=== PATIENT | female | born 1995 | race Caucasian/White ===

== ENCOUNTER 2023-11-17 10:03 | Inpatient (IN) ==
[2023-11-17] MEDS: SODIUM CHLORIDE 0.9% 1,000 ML IV SCH (10:40)
[2023-11-17 11:06] LABS: Alanine Aminotransferase 25 U/L (7-52); Albumin Globulin Ratio 1.5 (0.9-2); Albumin Level 4.5 gm/dl (3.4-5.0); Alkaline Phosphatase 76 U/L (34-104); Anion Gap 15 (3-11); Aspartate Aminotransferase 13 U/L (13-39); BUN Creatinine Ratio 19.6 (10-20); Bilirubin,Total 1.5 mg/dl (0.2-1.0); Blood Urea Nitrogen 10 mg/dl (6-23); Calcium 9.5 mg/dl (8.6-10.3); Carbon Dioxide 18 mmol/L (21-32); Chloride 100 mmol/L (98-107); Creatinine Clr Calc Pharmacy 165.7 ml/min; Est GFR (African American) > 150.0 ml/min; Est GFR (Non-African American) 129.9 ml/min; Glucose 115 mg/dl (70-99(Fasting)); Potassium 3.7 mmol/L (3.5-5.1); Sodium 133 mmol/L (136-145); Total Protein 7.5 gm/dl (6.0-8.3)
[2023-11-17 11:17] LABS: Basophils # (auto) 0.07 K/uL (0.00-0.20); Basophils % (auto) 0.2 %; Eosinophils # (auto) 0.01 K/uL (0.00-0.50); Hematocrit (blood only) 41.8 % (37.0-47.0); Hemoglobin 14.2 g/dl (12.0-16.0); Immature Granulocytes # (auto) 0.28 K/uL (0.01-0.20); Immature Granulocytes % (auto) 0.8 %; Lymphocytes # (auto) 1.72 K/uL (1.20-3.40); Mean Corpuscular Hemoglobin 27.5 pg (25.0-34.0); Mean Platelet Volume 10.1 fL (9.4-12.4); Monocytes # (auto) 2.24 K/uL (0.11-0.59); Monocytes % (auto) 6.5 %; Neutrophils # (auto) 30.39 K/uL (1.40-6.50); Neutrophils % (auto) 87.5 %; Platelet Count 266 K/uL (130-400); RDW Coefficient of Variation 12.4 % (11.5-14.5); RDW Standard Deviation 35.8 fL (36.4-46.3); Red Blood Count 5.16 M/uL (4.20-5.40); White Blood Count 34.71 K/ul (4.8-10.8)
[2023-11-17 11:34] LABS: Adenovirus PCR Not Detected (NotDetected); Bordetella parapertussis PCR Not Detected (NotDetected); Bordetella pertussis PCR Not Detected (NotDetected); Chlamydia pneumoniae PCR Not Detected (NotDetected); Coronavirus 229E PCR Not Detected (NotDetected); Coronavirus CoV-2 (COVID19)PCR Not Detected (NotDetected); Coronavirus HKU1 PCR Not Detected (NotDetected); Coronavirus NL63 PCR Not Detected (NotDetected); Coronavirus OC43PCR Not Detected (NotDetected); Human Metapneumovirus PCR Not Detected (NotDetected); Influenza A PCR Not Detected (NotDetected); Influenza B PCR Not Detected (NotDetected); Mycoplasma pneumoniae PCR Not Detected (NotDetected); Parainfluenza Virus 1 PCR Not Detected (NotDetected); Parainfluenza Virus 2 PCR Not Detected (NotDetected); Parainfluenza Virus 3 PCR Not Detected (NotDetected); Parainfluenza Virus 4 PCR Not Detected (NotDetected); Respiratory Syncytial VirusPCR Not Detected (NotDetected); Rhinovirus/Enterovirus PCR Not Detected (NotDetected)
--- NOTE | 2023-11-17 11:34 | CT Scan Report ---
CT soft tissue neck wo con CLINICAL HISTORY: throat pain, pain with swallowing Technique: Axial CT images of the soft tissues of the neck were obtained following intravenous admini stration of 100 cc of Omnipaque 300. Automated dose lowering techniques and/or adjustment according t o patient size were utilized for this exam. Comparison: None available at the time of this dictation. Findings: The oropharynx, hypopharynx, larynx, and trachea are patent. Subcentimeter lymph nodes are seen. The parotid glands, submandibular glands, and thyroid gland are unremarkable. Imaged portions of the brain parenchyma are unremarkable. The paranasal sinuses and mastoid air cell s are normal in appearance. Impression: No acute abnormality is seen. ACT 112: Negative or not required by law. Electronically signed by: Beck Chun M.D. 11/17/2023 11:32 AM
[2023-11-17] MEDS ORDERED: AMPICILLIN SOD/SULBACTAM SOD 3 GM VIAL IV STA (11:54)
[2023-11-17] MEDS: KETOROLAC TROMETHAMINE 15 MG/ML VIAL IV STA (11:57)
[2023-11-17] MEDS: dexAMETHasone**PF** 10 MG/ML VIAL IV ONE (12:21)
[2023-11-17] MEDS: AMPICILLIN/SULBACTAM SOD 3,000 MG/100 ML BAG IV STA (12:55)
--- NOTE | 2023-11-17 13:30 | Emergency Department Note ---
ED Visit Note I was consulted by the Advanced Practice Provider, Chioma Samuels NP. I personally made/approved the management plan and take responsibility for the patient management. I performed a substantive portion of the visit. This includes the aspects of: Patient has a marked leukocytosis. Patient also had tachycardia. CT imaging did not reveal any acute findings such as retropharyngeal abscess, peritonsillar abscess or epiglottitis. BioFire testing negative. Patient was compared recovered with antibiotics. Further management in the hospital was deemed appropriate. -I independently interpreted the following studies: CT imaging of the neck revealed no evidence of epiglottitis or RPA. I refer you to the EMR for further details. .
--- NOTE | 2023-11-17 14:21 | History & Physical Report ---
Date of Service November 17, 2023 Assessment & Plan (1) Pharyngitis: Plan: Fever, chills, sore throat, and throat swelling that began on 11/15 Group A strep (-) x2 Monospot (-) Throat culture ordered, pending Soft tissue neck CT without acute abnormalities; no abscess noted However, chest CTA did reveal mild splenomegaly; ? False negative Monospot Also, Hughes membrane noted on the posterior right pharynx; ? Diphtheria Patient believes she is UTD on childhood immunizations Will continue to cover with Unasyn 3000 mg IV q6h for ENT infection given significant leukocytosis Supportive care Keep n.p.o. for now until throat swelling subsides IVF maintenance with LR at 115mL/hr x 3 L Dexamethasone 10 mg IV x 1 in the ED Dexamethasone 6 mg IV QAM Benadryl 25 mg IV q6h as needed for throat swelling Menthol lozenges as needed for sore throat IV acetaminophen as needed for pain/fever Leading DDx at time of admission includes mononucleosis, viral pharyngitis, and diphtheria (among other etiologies); given leukocytosis is greatly out of proportion to these diagnoses, will continue to look for additional sources of infection with workup A.m. CBC, BMP (2) Sepsis: Plan: Unclear source, but suspect ENT; patient is tachycardic, tachypneic, with a leukocytosis of 34 on arrival; reported fever at home Blood cultures drawn in the ED Procalcitonin WNL at 0.20 Lactate WNL at 1.0 Antibiotics (as above) (3) Tachycardia: Plan: Tachycardic in the ED ranging from 125-140bpm SOB at rest and pleuritic chest pain in the ED No prior history of DVT/PE Chest CTA revealed no acute pulmonary emboli Troponin ordered, pending Continuous telemetry monitoring (4) TSH deficiency: Plan: Prominent thyroid noted both on exam and chest CTA Patient denies history of thyroid issues TSH on arrival is low at 0.013; ?Thyrotoxicosis/thyroid storm Free T4 level ordered, pending Plan Disposition: Admit to PCU telemetry DNR/DNI N.p.o. for now VTE PPx: Lovenox 40 mg SQ q24h History of Present Illness Chief Complaint: Pharyngitis, fever, chills Primary Care Provider: NO PCP Igraine is a 28-year-old female without significant PMH. She presented on 11/16 for fever, chills, sore throat, and neck swelling. She woke up yesterday morning and had a tickle in her throat, but it worsened throughout the day. She went in [facility] yesterday and sent home with lozenges, Chloraseptic, and told to take Tylenol for fever. That evening, her sore throat became "10 times worse" and she developed cold sweats, chills, and reports her teeth hurt significantly. She is currently traveling and staying in hot and did not have a thermometer to take her temperature. She is originally from [place]. 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 She does travel significantly, and reports she was in [place] for 4 months (until about a week ago). No travel outside the . Patient reports she has had significant trouble eating, and has had difficulty drinking water; she reports it feels like "shards of glass" whenever she swallows. Patient does not take medication on a daily basis. She uses a copper IUD for control. She denies chance of as LMP was today on 11/16. She reports that she is not currently sexually active, and does not have a history of STIs. Her last dental procedure was back in May where she had a/crown placed. Her only known allergy is to shellfish; NKDA. No PMH of DVT/PE, bleeding disorders, or GI bleeds. Patient reports that she does smoke marijuana, but denies tobacco use or chewing tobacco. Last alcohol use was 1 week ago. She denies history of other recreational drug use or IV drug use. Patient had strep as a child, but up until this, she has been fairly healthy for the past 3 years. No history of mono to her knowledge. She reports she is up-to-date on childhood vaccinations for things such as diphtheria, and believes she is up-to-date on TB. No sick contacts to her knowledge. She reports she does not have any allergies to IV contrast. Patient is hypertensive at 143/71, tachycardic at 124 bpm, and tachypneic at 25 rpm at time of admission. ED course: Unasyn 3000 mg IV Dexamethasone 10 mg IV Toradol 15 mg IV NSS 1000 mL IV ROS: Patient endorses fever, chills, night-sweats, dizziness, lightheadedness, mild headache, intermittent blurry vision x 2 mo, swelling/sore throat, hoarseness, difficulty swallowing, chest palpitations, heart racing, SOB at rest/exertion, pleuritic CP, hemopytsis (not coughing, but says she will occasionally spit up blood). Patient denies neck stiffness (but does hurt move), photophobia, changes in hearing/taste/smell, chest pain, coughing, abdominal pain, N/V/D, changes in urinary/bowel habits, burning with urination, dysuria, blood in the urine/stool, or numbness/tingling in the arms or legs. Allergies Allergy/AdvReac Type Severity Reaction Status Date / Time shrimp Allergy Intermediate Unverified 11/17/23 09:04 Home Medications Medication Instructions Recorded Confirmed Type DayQuil Sinus Pressure/Pain 1 tab PO DIRECTED PRN Other 11/17/23 11/17/23 History Lozenges 1 malorie PO DIRECTED PRN Other 11/17/23 11/17/23 History Tylenol Extra Strength 1 tab PO DIRECTED PRN Pain 11/17/23 11/17/23 History phenol-phenolate sodium mucosal 1 spray PO DIRECTED PRN Other 11/17/23 11/17/23 History aerosol spray Past Med/Surg History Problem List (Updated 11/17/23 @ 18:12 by NICOLASA Enriquez) TSH deficiency Tachycardia Pharyngitis Sepsis (Acute) Social History Smoking Status: Former smoker Tobacco Type: Cigarettes Feels Safe at Home: Yes Review of Systems Review of Systems: See HPI above Physical Exam Physical Exam: General: Anxious; pleasant affect; toxic appearing; febrile; diaphoretic; cooperative; SpO2 95% on RA HEENT: normocephalic, atraumatic; no scleral icterus; PERRLA w/ EOMs intact; vision and hearing grossly intact; very membranous exudate noted on the posterior right pharynx; uvula mildly deviated to the left; significant erythematous bilateral tonsillar swelling Neck: supple; bilateral anterior chain lymphadenopathy; mild erythema and maculopapular rash mainly on the right anterior neck; trachea midline; enlarged thyroid; neck is TTP; patient demonstrates ability to shrug shoulders against resistance and rotate neck bilaterally without deficits Skin: Skin is erythematous and moist; without signs of tenting; no cyanosis; no rashes, bruising, lesions, or erythema noted CV: chest wall NTP; RRR; S1/S2 normal; no murmurs/rubs/gallops; pulses intact and symmetric at radial, DP, and PT Lungs: no acute respiratory distress; symmetrical chest wall expansion; clear breath sounds across all lung rubio w/o adventitious sounds; no wheezing ABD: Soft, NTP; BS present; no rebound/guarding; no distention MSK: no tics or fasciculations; no edema noted in the LEs b/l, nonerythematous Neuro: A&Ox3; normal mood and affect; fluent speech; no focal deficits; sensation grossly intact in the LEs b/l; negative Brudzinski's signs (note knee flexion when bending head forward); negative Kernig sign (no back pain) Results & Data Results & Data Vital Signs (Past 12 Hours) Vital Signs Temp Pulse Resp BP Pulse Ox O2 Del Method 11/17/23 13:05 124 H 11/17/23 12:48 128 H 95 Room Air 11/17/23 12:42 126 H 25 H 143/71 H 95 11/17/23 10:07 37.1 C 136 H 20 156/93 H 98 Room Air Laboratory Results Abnormal lab results 11/17/23 Range/Units 10:20 WBC 34.71 H* (4.8-10.8) K/ul RDW Std Deviation 35.8 L (36.4-46.3) fL Neut # (Auto) 30.39 H (1.40-6.50) K/uL [place] # (Auto) 2.24 H (0.11-0.59) K/uL Immature Gran # (Auto) 0.28 H (0.01-0.20) K/uL Sodium 133 L (136-145) mmol/L Carbon Dioxide 18 L (21-32) mmol/L Anion Gap 15 H (3-11) Creatinine 0.51 L (0.6-1.2) mg/dl Glucose 115 H (70-99(Fasting)) mg/dl Total Bilirubin 1.5 H (0.2-1.0) mg/dl Diagnostic Findings Soft Tissue Neck CT 11/17/23 10:25 CT soft tissue neck wo con CLINICAL HISTORY: throat pain, pain with swallowing Technique: Axial CT images of the soft tissues of the neck were obtained following intravenous administration of 100 cc of Omnipaque 300. Automated dose lowering techniques and/or adjustment according to patient size were utilized for this exam. Comparison: None available at the time of this dictation. Findings: The oropharynx, hypopharynx, larynx, and trachea are patent. Subcentimeter lymph nodes are seen. The parotid glands, submandibular glands, and thyroid gland are unremarkable. Imaged portions of the brain parenchyma are unremarkable. The paranasal sinuses and mastoid air cells are normal in appearance. Impression: No acute abnormality is seen. ACT 112: Negative or not required by law. Electronically signed by: Beck Chun M.D. 11/17/2023 11:32 AM ECG Additional Comments: ECG revealed sinus tachycardia at 125 bpm; QTc 409 Code Status & VTE Plan Code Status DNR/DNI (discussed with both patient and patient's nurse at bedside; discussed risks/benefits of measures such as CPR, and informed patient that - given her young age - there would be a better chance of recovery; patient confirms that, even if the condition were reversible, she would not want CPR/defibrillation/in tubation; patient reports that she saw her boyfriend on life support for 5 months and would never want to go through anything like that, even for short period of time; she reports she would want her dad to be medical proxy in an emergency situation) VTE Prophylaxis Plan VTE Prophylaxis will be ordered: Yes Supervising Physician Co-Signing Physician Notes Patient seen and examined, chart reviewed, case discussed with Gonzales Daniels PA-C and I agree with the assessment and plan as above except as otherwise noted Labs and images reviewed 28-year-old female who presents with fever, chills, sore throat, neck swelling. Symptoms began yesterday but rapidly worsened with cold sweats chills and severe sore throat. Is a leukocytosis of 34.7 with neutrophilic predominance and left shift. Bio fire is negative. Soft tissue neck shows adenopathy but does not show any evidence of abscess. Patient had a severe associated tachycardia in the 100s, sinus with minimal improvement following fluids. CTA was obtained this does not show any evidence of PE or pneumonia.. On exam lungs are clear, she has an erythematous oropharynx with some exudate, and posterior chain adenopathy. She has no stridor, uvula is midline. Pharyngitis, congestion Blood culture, throat culture pending. CTsoft tissue neck with adenopathy, no signs of abscess Patient covered with Unasyn. Patient has palpable posterior chain adenopathy and splenomegaly suspicious for EBV infection. Monospot is negative however poor sensitivity for first 2 weeks and patient has only had 2 days of illness. EBV acute panel has been sent Continue blood cultures No signs of airway compromise will admit Hypothyroidism Prominent thyroid on CT. TSH is suppressed, T4 is elevated at 4. No prior history of thyroid disease. Differential includes thyroiditis, autoimmune hyperthyroid. ? Viral, bacterial, and AI thyroiditis. No signs of abscess on CT, patient is covered with Unasyn as above Propranolol started for suspected tachycardia related to hyperthyroidism. She does not meet criteria for thyroid storm and has no STEEL CRANE OPERATOR change/delirium/agitation on admit. Will monitor, if worsening or STEEL CRANE OPERATOR involvement develops --> start PTU 500mg load then 200mg q4h +/- iodine Extended discussion with patient regarding CODE STATUS, patient DNR/DNI on admission. She reports that her boyfriend required a ventilator for an extended period of time and had an anoxic brain damage, and she does not want any type of resuscitation performed if she had a cardiopulmonary arrest and there was any risk whatsoever brain damage. In the setting she would rather be allowed to pass. She expresses an understanding of the nature of CPR and resuscitation, and that to be her soon as possible to cardiac arrest is done to help minimize the risk of brain damage however she notes that even in the hospital setting she would not want any risk of this at all rather be allowed to pass. She does note that in the event that she were having airway swelling or other conditions that might lead to compromised airway outside of a cardiac arrest she would be okay with temporary intubation and ventilation to protect her airway, but notes her most important goal would be to avoid any risk of brain damage/anoxic injury. If this had already occurred she would rather be allowed to pass or defer treatment. PG Care Time/CCT Total # of Minutes Spent Total Time Spent with Patient: Total time spent is greater than 50% in coordination of care (as documented) at patient's floor/unit and/or counseling patient: [place] [address] INT INP/OBS CARE 75MIN Patient Type New History Comprehensive Exam Comprehensive Medical Decision Making High Complexity Diagnoses Pharyngitis J02.9 Sepsis A41.9 Tachycardia R00.0 TSH deficiency E03.8
[2023-11-17] MEDS: LACTATED RINGER'S 750 ML IV ONE (15:05)
[2023-11-17] MEDS: OPTIRAY 320 125ml IV ONE (15:27)
[2023-11-17] MEDS ORDERED: diphenhydrAMINE 50 MG/ML VIAL IV PRN ×2 (15:35→15:36)
--- NOTE | 2023-11-17 15:50 | CT Scan Report ---
CT ANGIOGRAPHY OF THE CHEST, PULMONARY EMBOLUS PROTOCOL CLINICAL HISTORY: Body chills. Cold sweats. Sore throat. Evaluate for pulmonary embolus. COMPARISON STUDY: No previous studies for comparison. TECHNIQUE: Following IV administration of 118 mL of Optiray, helical axial images of the chest were o btained utilizing the pulmonary embolus protocol. Maximal intensity projections and sagittal and cor onal reformats were viewed on an independent 3D workstation. IV contrast was administered without co mplication. Automated exposure control was utilized for the study. A dose lowering technique was ut ilized adhering to the principles of ALARA. CT DOSE: 343.68 mGy.cm FINDINGS: No pulmonary emboli are identified although the subsegmental pulmonary arteries are subopt imally assessed due to respiratory motion. There is no thoracic aortic dissection. Size of the heart is normal. There is no pericardial effusion. There is residual thymus. The thyroid gland is prominent . No pneumothorax or pleural effusion. No consolidation to suggest pneumonia. There are no suspicious pulmonary nodules. Central airways are patent. There are no acute fractures within the bony thorax. The spleen is mildly enlarged. IMPRESSION: 1. No pulmonary emboli identified although subsegmental pulmonary arteries suboptimally assessed due to respiratory motion. 2. No consolidation to suggest pneumonia. 3. Mild splenomegaly. 4. Prominent thyroid, a finding of questionable significance which could be correlated with thyroid f unction tests. ACT 112: Negative or not required by law. Electronically signed by: Presley Valerio M.D. 11/17/2023 3:49 PM
[2023-11-17] MEDS: LACTATED RINGER'S 1,000 ML IV SCH (16:00)
[2023-11-17] MEDS: ACETAMINOPHEN 1,000 MG/100 ML VIAL IV STA (16:26)
[2023-11-17] MEDS: COUGH DROP (SUGAR FREE) LOZ 24 LOZ/1 BOX BUCCAL PRN (16:26)
[2023-11-17 16:56] LABS: Thyroid Stimulating Hormone 0.013 uIu/ml (0.300-4.500)
--- NOTE | 2023-11-17 17:28 | Emergency Department Note ---
ED Provider Note History of Present Illness Chief Complaint: Illness Stated Complaint: HIGH HEART RATE, THROAT BLEEDING Time Seen by Provider: 11/17/23 10:12 Source: patient Mode of arrival: ambulatory Limitations: no limitations Patient is a 28-year-old female who presents to the emergency department with complaints of throat pain. Patient states that she was seen yesterday and today at [facility] with complaints of sore throat and was tested for strep throat and COVID both times. Patient states that she had a negative strep test and negative COVID test both times. Patient states that she has tachycardia, fevers, sore throat, pain with swallowing, and general fatigue and aches. Patient states that she has been taking [id number] medications with no improvement. Home Medications Medication Instructions Recorded Confirmed Type DayQuil Sinus Pressure/Pain 1 tab PO DIRECTED PRN Other 11/17/23 11/17/23 History Lozenges 1 salma PO DIRECTED PRN Other 11/17/23 11/17/23 History Tylenol Extra Strength 1 tab PO DIRECTED PRN Pain 11/17/23 11/17/23 History phenol-phenolate sodium mucosal 1 spray PO DIRECTED PRN Other 11/17/23 11/17/23 History aerosol spray Allergies Allergy/AdvReac Type Severity Reaction Status Date / Time shrimp Allergy Intermediate Unverified 11/17/23 09:04 Past Med/Surg History Problem List (Updated 11/17/23 @ 18:12 by NICOLASA Enriquez) TSH deficiency Tachycardia Pharyngitis Sepsis (Acute) Social History Smoking Status: Former smoker Tobacco Type: Cigarettes Feels Safe at Home: Yes Physical Exam Vital Signs Vital Signs - 24 hr 11/17/23 10:07 11/17/23 12:42 11/17/23 12:48 Temperature 37.1 C Temperature Source Temporal Artery Scan Pulse Rate 136 H 126 H 128 H Pulse Rate from SpO2 Sensor 126 H Pulse Rhythm Regular Respiratory Rate 20 25 H Respiratory Effort / Characteristics Non-Labored Spontaneous Respiratory Depth Normal Blood Pressure 156/93 H 143/71 H Blood Pressure Mean 114 95 Pulse Oximetry 98 95 95 Oxygen Delivery Method Room Air Room Air Sepsis Recent Fever Within 48 Hours No Sepsis New/Unexplained Change in Mental Status N/A Sepsis Action Taken by Nursing No Action Required 11/17/23 13:05 11/17/23 16:21 11/17/23 16:37 Temperature Temperature Source Pulse Rate 124 H 114 H 117 H Pulse Rate from SpO2 Sensor Pulse Rhythm Respiratory Rate 22 22 Respiratory Effort / Characteristics Respiratory Depth Blood Pressure 147/92 H 147/99 H Blood Pressure Mean 110 115 Pulse Oximetry 95 94 Oxygen Delivery Method Room Air Room Air Sepsis Recent Fever Within 48 Hours Sepsis New/Unexplained Change in Mental Status Sepsis Action Taken by Nursing 11/17/23 17:01 Temperature Temperature Source Pulse Rate 120 H Pulse Rate from SpO2 Sensor Pulse Rhythm Respiratory Rate Respiratory Effort / Characteristics Respiratory Depth Blood Pressure Blood Pressure Mean Pulse Oximetry Oxygen Delivery Method Sepsis Recent Fever Within 48 Hours Sepsis New/Unexplained Change in Mental Status Sepsis Action Taken by Nursing VITAL SIGNS - Vital signs and nursing notes were reviewed. GENERAL -28-year-old female appearing their stated age, who is anxious and tearful at bedside. Communicates well with provider and answers questions appropriately. HEAD - Normocephalic, Atraumatic. No Spangler's Sign or Raccoon's Eyes. EYES - PERRL with EOMI bilaterally. Sclera anicteric. Conjunctiva pink and moist with no injection noted. EARS - No deformities of external structures noted on gross examination bilaterally. NOSE - Midline and without cyanosis. No epistaxis or purulent drainage noted. MOUTH/OROPHARYNX - Without perioral cyanosis. Patient has erythema noted to her throat as well as swollen tonsils noted bilaterally. No tonsillar exudates noted. NECK - Neck with FROM. Mild lymphadenopathy noted. LUNGS - Chest wall symmetric without accessory muscle use, intercostals retractions, or central cyanosis. Normal vesicular breath sounds CTA B/L. No wheezes, rales, or rhonchi appreciated. CARDIAC - RRR with S1/S2. No murmur, rubs, or gallops appreciated. EXTREMITIES - No edema present. +5/5 strength noted in UE/LE bilaterally. NEUROLOGIC -Sensory intact to light touch throughout. PSYCH - A&Ox3 and cooperates fully with examiner. Pt is very pleasant and interacts well with examiner Course Administered Medications Lactated Ringer's (Lr) 1,000 mls @ 115 mls/hr IV .Q8H42M KANU Stop: 11/18/23 17:50 Last Admin: 11/17/23 16:00 Dose: 115 mls/hr Documented By: MH Menthol (Cough Drop (Sugar Free) Salma 24 Salma/1 Box) 1 salma BUCCAL DAILY PRN PRN Reason: Sore Throat Stop: 12/17/23 15:27 Last Admin: 11/17/23 16:26 Dose: 1 salma Documented By: RAÚL Discontinued Medications Dexamethasone Sodium Phosphate (DexamethasonePf 10 Mg/Ml Vial) 10 mg IV NOW ONE Stop: 11/17/23 11:55 Last Admin: 11/17/23 12:21 Dose: 10 mg Documented By: SALMA Sodium Chloride (Nss) 1,000 mls @ 999 mls/hr IV .Q1H1M KANU Stop: 11/17/23 11:30 Last Infusion: 11/17/23 12:14 Dose: Infused Documented By: Admin: 11/17/23 10:40 Dose: 999 mls/hr Documented By: SALMA Ampicillin Sodium/Sulbactam Sodium (Unasyn) 3,000 mg in 100 mls @ 200 mls/hr IV NOW STA; Protocol Stop: 11/17/23 12:28 Last Infusion: 11/17/23 13:25 Dose: Infused Documented By: Admin: 11/17/23 12:55 Dose: 200 mls/hr Documented By: BAY Lactated Ringer's (Lr) 750 mls @ 999 mls/hr IV .Q46M ONE Stop: 11/17/23 15:20 Last Infusion: 11/17/23 15:58 Dose: Infused Documented By: Admin: 11/17/23 15:05 Dose: 999 mls/hr Documented By: RAÚL Acetaminophen (Ofirmev) 1,000 mg in 100 mls @ 400 mls/hr IV NOW STA Stop: 11/17/23 16:36 Last Infusion: 11/17/23 16:43 Dose: Infused Documented By: Admin: 11/17/23 16:26 Dose: 400 mls/hr Documented By: RAÚL Ioversol (Optiray 320 125ml) 118 ml IV ONCE ONE Stop: 11/17/23 15:25 Last Admin: 11/17/23 15:27 Dose: 118 ml Documented By: JORDY Ketorolac Tromethamine (Ketorolac Tromethamine 15 Mg/Ml Vial) 15 mg IV NOW STA Stop: 11/17/23 11:55 Last Admin: 11/17/23 11:57 Dose: 15 mg Documented By: SALMA Medical Decision Making Differential Diagnosis Acute pharyngitis, URI, Viral pharyngitis, Strep Pharyngitis, Ihdi-Dbcv-Aerna Disease, Peritonsillar abscess, tonsilitis, malignancy, and others Medical Records Attestation: I reviewed the patient's medical records. Home Medications was personally reviewed by me Laboratory Data 11/17/23 10:20 11/17/23 10:20 Lab Results 11/17/23 11/17/23 11/17/23 Range/Units 10:20 10:23 11:47 WBC 34.71 H* (4.8-10.8) K/ul RBC 5.16 (4.20-5.40) M/uL Hgb 14.2 (12.0-16.0) g/dl Hct 41.8 (37.0-47.0) % MCV 81.0 (80.0-100.0) fL MCH 27.5 (25.0-34.0) pg MCHC 34.0 (32.0-36.0) g/dL RDW Std Deviation 35.8 L (36.4-46.3) fL RDW Coeff of Markel 12.4 (11.5-14.5) % Plt Count 266 (130-400) K/uL MPV 10.1 (9.4-12.4) fL Immature Gran % (Auto) 0.8 % Neut % (Auto) 87.5 % Lymph % (Auto) 5.0 % Sutton % (Auto) 6.5 % Eos % (Auto) 0.0 % Baso % (Auto) 0.2 % Neut # (Auto) 30.39 H (1.40-6.50) K/uL Lymph # (Auto) 1.72 (1.20-3.40) K/uL Sutton # (Auto) 2.24 H (0.11-0.59) K/uL Eos # (Auto) 0.01 (0.00-0.50) K/uL Baso # (Auto) 0.07 (0.00-0.20) K/uL Immature Gran # (Auto) 0.28 H (0.01-0.20) K/uL Sodium 133 L (136-145) mmol/L Potassium 3.7 (3.5-5.1) mmol/L Chloride 100 (98-107) mmol/L Carbon Dioxide 18 L (21-32) mmol/L Anion Gap 15 H (3-11) BUN 10 (6-23) mg/dl Creatinine 0.51 L (0.6-1.2) mg/dl Est Cr Clr Drug Dosing 165.7 ml/min Est GFR ( Amer) > 150.0 ml/min Est GFR (Non-Af Amer) 129.9 ml/min BUN/Creatinine Ratio 19.6 (10-20) Glucose 115 H (70-99(Fasting)) mg/dl Lactate 1.0 (0.4-2.0) mmol/L Calcium 9.5 (8.6-10.3) mg/dl Total Bilirubin 1.5 H (0.2-1.0) mg/dl AST 13 (13-39) U/L ALT 25 (7-52) U/L Alkaline Phosphatase 76 (34-104) U/L Total Protein 7.5 (6.0-8.3) gm/dl Albumin 4.5 (3.4-5.0) gm/dl Globulin 3.0 (2.5-4.0) gm/dl Albumin/Globulin Ratio 1.5 (0.9-2) Procalcitonin (0-0.5) ng/ml TSH 0.013 L (0.300-4.500) uIu/ml Free T4 4.43 H (0.61-1.60) ng/dl Adenovirus (PCR) Not Detected (NotDetected) B. pertussis DNA (PCR) Not Detected (NotDetected) B.parapertussis DNA PCR Not Detected (NotDetected) C. pneumoniae DNA (PCR) Not Detected (NotDetected) Coronavirus OC43 (PCR) Not Detected (NotDetected) Coronavirus HKU1 (PCR) Not Detected (NotDetected) Coronavirus 229E (PCR) Not Detected (NotDetected) SARS-CoV-2 (PCR) Not Detected (NotDetected) Coronavirus NL63 (PCR) Not Detected (NotDetected) Monoscreen Negative (Negative) Human Metapneumovir PCR Not Detected (NotDetected) Influenza Type A (PCR) Not Detected (NotDetected) Influenza Type B (PCR) Not Detected (NotDetected) M. pneumoniae (PCR) Not Detected (NotDetected) Parainfluenza 1 (PCR) Not Detected (NotDetected) Parainfluenza 2 (PCR) Not Detected (NotDetected) Parainfluenza 3 (PCR) Not Detected (NotDetected) Parainfluenza 4 (PCR) Not Detected (NotDetected) RSV (PCR) Not Detected (NotDetected) Entero/Rhino (PCR) Not Detected (NotDetected) 11/17/23 Range/Units 11:53 WBC (4.8-10.8) K/ul RBC (4.20-5.40) M/uL Hgb (12.0-16.0) g/dl Hct (37.0-47.0) % MCV (80.0-100.0) fL MCH (25.0-34.0) pg MCHC (32.0-36.0) g/dL RDW Std Deviation (36.4-46.3) fL RDW Coeff of Markel (11.5-14.5) % Plt Count (130-400) K/uL MPV (9.4-12.4) fL Immature Gran % (Auto) % Neut % (Auto) % Lymph % (Auto) % Sutton % (Auto) % Eos % (Auto) % Baso % (Auto) % Neut # (Auto) (1.40-6.50) K/uL Lymph # (Auto) (1.20-3.40) K/uL Sutton # (Auto) (0.11-0.59) K/uL Eos # (Auto) (0.00-0.50) K/uL Baso # (Auto) (0.00-0.20) K/uL Immature Gran # (Auto) (0.01-0.20) K/uL Sodium (136-145) mmol/L Potassium (3.5-5.1) mmol/L Chloride (98-107) mmol/L Carbon Dioxide (21-32) mmol/L Anion Gap (3-11) BUN (6-23) mg/dl Creatinine (0.6-1.2) mg/dl Est Cr Clr Drug Dosing ml/min Est GFR ( Amer) ml/min Est GFR (Non-Af Amer) ml/min BUN/Creatinine Ratio (10-20) Glucose (70-99(Fasting)) mg/dl Lactate (0.4-2.0) mmol/L Calcium (8.6-10.3) mg/dl Total Bilirubin (0.2-1.0) mg/dl AST (13-39) U/L ALT (7-52) U/L Alkaline Phosphatase (34-104) U/L Total Protein (6.0-8.3) gm/dl Albumin (3.4-5.0) gm/dl Globulin (2.5-4.0) gm/dl Albumin/Globulin Ratio (0.9-2) Procalcitonin 0.20 (0-0.5) ng/ml TSH (0.300-4.500) uIu/ml Free T4 (0.61-1.60) ng/dl Adenovirus (PCR) (NotDetected) B. pertussis DNA (PCR) (NotDetected) B.parapertussis DNA PCR (NotDetected) C. pneumoniae DNA (PCR) (NotDetected) Coronavirus OC43 (PCR) (NotDetected) Coronavirus HKU1 (PCR) (NotDetected) Coronavirus 229E (PCR) (NotDetected) SARS-CoV-2 (PCR) (NotDetected) Coronavirus NL63 (PCR) (NotDetected) Monoscreen (Negative) Human Metapneumovir PCR (NotDetected) Influenza Type A (PCR) (NotDetected) Influenza Type B (PCR) (NotDetected) M. pneumoniae (PCR) (NotDetected) Parainfluenza 1 (PCR) (NotDetected) Parainfluenza 2 (PCR) (NotDetected) Parainfluenza 3 (PCR) (NotDetected) Parainfluenza 4 (PCR) (NotDetected) RSV (PCR) (NotDetected) Entero/Rhino (PCR) (NotDetected) Imaging Data Radiologist's Impression: Soft Tissue Neck CT 11/17/23 10:25 CT soft tissue neck wo con CLINICAL HISTORY: throat pain, pain with swallowing Technique: Axial CT images of the soft tissues of the neck were obtained following intravenous administration of 100 cc of Omnipaque 300. Automated dose lowering techniques and/or adjustment according to patient size were utilized for this exam. Comparison: None available at the time of this dictation. Findings: The oropharynx, hypopharynx, larynx, and trachea are patent. Subcentimeter lymph nodes are seen. The parotid glands, submandibular glands, and thyroid gland are unremarkable. Imaged portions of the brain parenchyma are unremarkable. The paranasal sinuses and mastoid air cells are normal in appearance. Impression: No acute abnormality is seen. ACT 112: Negative or not required by law. Electronically signed by: Beck Chun M.D. 11/17/2023 11:32 AM Chest CTA 11/17/23 15:16 CT ANGIOGRAPHY OF THE CHEST, PULMONARY EMBOLUS PROTOCOL CLINICAL HISTORY: Body chills. Cold sweats. Sore throat. Evaluate for pulmonary embolus. COMPARISON STUDY: No previous studies for comparison. TECHNIQUE: Following IV administration of 118 mL of Optiray, helical axial images of the chest were obtained utilizing the pulmonary embolus protocol. Maximal intensity projections and sagittal and coronal reformats were viewed on an independent 3D workstation. IV contrast was administered without complication. Automated exposure control was utilized for the study. A dose lowering technique was utilized adhering to the principles of ALARA. CT DOSE: 343.68 mGy.cm FINDINGS: No pulmonary emboli are identified although the subsegmental pulmonary arteries are suboptimally assessed due to respiratory motion. There is no thoracic aortic dissection. Size of the heart is normal. There is no pericardial effusion. There is residual thymus. The thyroid gland is prominent. No pneumothorax or pleural effusion. No consolidation to suggest pneumonia. There are no suspicious pulmonary nodules. Central airways are patent. There are no acute fractures within the bony thorax. The spleen is mildly enlarged. IMPRESSION: 1. No pulmonary emboli identified although subsegmental pulmonary arteries suboptimally assessed due to respiratory motion. 2. No consolidation to suggest pneumonia. 3. Mild splenomegaly. 4. Prominent thyroid, a finding of questionable significance which could be correlated with thyroid function tests. ACT 112: Negative or not required by law. Electronically signed by: Presley Valerio M.D. 11/17/2023 3:49 PM MDM Narrative Patient is a 28-year-old female who presents to the emergency department with complaints of sore throat. Patient states that for several days now she has been having sore throat and it is getting worse. Patient notes that she is also having associated fevers, and generalized fatigue and bodyaches. Patient was seen at [facility] yesterday and had a negative strep and COVID test. Patient returned to about any [facility] today because her symptoms had not improved and actually felt that they were worsening. Patient had another strep test and COVID test completed today and they were both negative as well. Patient was evaluated by myself and findings were noted in the physical exam above. Patient was ordered IV placement, lab work, CT of the soft tissues of her neck, as well as a respiratory panel swab. Patient's lab work returned with a white blood cell count of 34.71, and due to the elevated white blood cell count patient was ordered additional lab work. Patient had a normal procalcitonin and normal lactate level. Patient was also ordered blood cultures at this time. Patient was given a dose of Toradol to help with her discomfort as well as started on an IV dose of Unasyn. Patient was also given an IV dose of dexamethasone. Patient's mono spot and upper respiratory panel were all negative. Patient CT of the soft tissues of her neck was interpreted by radiology to show no acute abnormality. After IV fluids the patient continues to have an elevated pulse rate around 120 in a regular tachycardic presentation. Patient reports some mild relief of her symptoms with Toradol but continues to report significant pain with swallowing. Because of patient's elevated white blood cell count and no definitive cause for that elevation, I spoke with the [facility] hospitalist group about admitting the patient as an observation patient. The patient was accepted by the hospitalist group and will be admitted to the hospital. Please refer to inpatient documentation for further management of this patient. Impression Sepsis Discharge Plan Visit Data Chief Complaint: Illness Stated Complaint: HIGH HEART RATE, THROAT BLEEDING ED Provider: Michael Calabrese ED Midlevel Provider: Chioma Samuels Discharge Problem: Sepsis Patient Disposition: Admitted As Inpatient Forms Stand Alone Forms: My [facility] Prescriptions Prescriptions: No Action Chloraseptic Aerosol,[place] 1 spray PO DIRECTED PRN (Reason: Other) DayQuil Sinus Pressure/Pain 1 tab PO DIRECTED PRN (Reason: Other) Rx Instructions: otc, as directed Lozenges 1 salma PO DIRECTED PRN (Reason: Other) Tylenol Extra Strength 1 tab PO DIRECTED PRN (Reason: Pain) Referrals Referrals: PCP,NO [Primary Care Provider] - Discharge Problem: Sepsis Qualifiers: Sepsis type: sepsis due to unspecified organism Sepsis acute organ dysfunction status: without acute organ dysfunction Qualified Code(s): A41.9 - Sepsis, unspecified organism
[2023-11-17 17:31] LABS: T4 Free Thyroxine 4.43 ng/dl (0.61-1.60)
[2023-11-17] MEDS ORDERED: ONDANSETRON INJ 2 MG/ML 2 ML VIAL IV PRN (19:15)
[2023-11-17] MEDS: AMPICILLIN/SULBACTAM SOD 3,000 MG/100 ML BAG IV SCH (20:57)
[2023-11-17] MEDS: MELATONIN 3 MG TAB PO PRN (22:14)
[2023-11-17] MEDS: PROPRANOLOL HCL 10 MG TAB PO SCH (22:14)
[2023-11-17] MEDS: ENOXAPARIN INJ 40 MG/0.4 ML SYR SQ SCH (22:24)
[2023-11-18] MEDS: ACETAMINOPHEN 1,000 MG/100 ML VIAL IV PRN (01:59)
--- NOTE | 2023-11-18 06:00 | Electrocardiogram Report ---
Test Reason : Blood Pressure : */* mmHG Vent. Rate : 125 BPM Atrial Rate : 125 BPM P-R Int : 162 ms QRS Dur : 72 ms QT Int : 284 ms P-R-T Axes : 44 65 46 degrees QTcB Int : 409 ms Sinus tachycardia Otherwise normal ECG No previous ECGs available Confirmed by Teodoro Mcclelland ([id number]) on 11/18/2023 6:00:09 AM Referred By: Confirmed By: Teodoro Mcclelland
[2023-11-18 06:33] LABS: Basophils # (auto) 0.01 K/uL (0.00-0.20); Hematocrit (blood only) 35.6 % (37.0-47.0); Hemoglobin 12.6 g/dl (12.0-16.0); Immature Granulocytes # (auto) 0.17 K/uL (0.01-0.20); Immature Granulocytes % (auto) 0.8 %; Lymphocytes # (auto) 1.49 K/uL (1.20-3.40); Mean Corpuscular Hemoglobin 28.6 pg (25.0-34.0); Mean Corpuscular Hgb Conc 35.4 g/dL (32.0-36.0); Mean Corpuscular Volume 80.9 fL (80.0-100.0); Mean Platelet Volume 10.1 fL (9.4-12.4); Monocytes # (auto) 0.99 K/uL (0.11-0.59); Monocytes % (auto) 4.7 %; Neutrophils # (auto) 18.58 K/uL (1.40-6.50); Neutrophils % (auto) 87.5 %; Platelet Count 210 K/uL (130-400); RDW Coefficient of Variation 12.4 % (11.5-14.5); RDW Standard Deviation 36.2 fL (36.4-46.3); White Blood Count 21.24 K/ul (4.8-10.8)
[2023-11-18 06:51] LABS: Anion Gap 8 (3-11); BUN Creatinine Ratio 36.4 (10-20); Blood Urea Nitrogen 12 mg/dl (6-23); Carbon Dioxide 21 mmol/L (21-32); Chloride 109 mmol/L (98-107); Creatinine Clr Calc Pharmacy 259.2 ml/min; Est GFR (African American) > 150.0 ml/min; Glucose 149 mg/dl (70-99(Fasting)); Potassium 3.9 mmol/L (3.5-5.1); Sodium 138 mmol/L (136-145)
[2023-11-18 07:56] VITALS: RESP 18
[2023-11-18] MEDS: dexAMETHasone 6 MG in SYRINGE 0 ML IV SCH (08:51)
[2023-11-18 11:44] VITALS: PULSE 96; TEMP 98.2
[2023-11-18] MEDS: methIMAzole 5 MG TABLET PO SCH (15:04)
[2023-11-18 16:08] VITALS: BP 138/86; O2SAT 94
--- NOTE | 2023-11-18 16:29 | Discharge Summary ---
Date of Service November 18, 2023 Admission HPI Per Admitting Provider Hardeep is a 28-year-old female without significant PMH. She presented on 11/16 for fever, chills, sore throat, and neck swelling. She woke up yesterday morning and had a tickle in her throat, but it worsened throughout the day. [facility] and sent home with lozenges, Chloraseptic, and told to take Tylenol for fever. That evening, her sore throat became "10 times worse" and she developed cold sweats, chills, and reports her teeth hurt significantly. She is currently traveling and staying in hot and did not have a thermometer to take her temperature. She is originally from [place]. 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 She does travel significantly, and reports she was in [place] for 4 months (until about a week ago). No travel outside the . Patient reports she has had significant trouble eating, and has had difficulty drinking water; she reports it feels like "shards of glass" whenever she swallows. Patient does not take medication on a daily basis. She uses a copper IUD for control. She denies chance of as LMP was today on 11/16. She reports that she is not currently sexually active, and does not have a history of STIs. Her last dental procedure was back in May where she had a/crown placed. Her only known allergy is to shellfish; NKDA. No PMH of DVT/PE, bleeding disorders, or GI bleeds. Patient reports that she does smoke marijuana, but denies tobacco use or chewing tobacco. Last alcohol use was 1 week ago. She denies history of other recreational drug use or IV drug use. Patient had strep as a child, but up until this, she has been fairly healthy for the past 3 years. No history of mono to her knowledge. She reports she is up-to-date on childhood vaccinations for things such as diphtheria, and believes she is up-to-date on TB. No sick contacts to her knowledge. She reports she does not have any allergies to IV contrast. Patient is hypertensive at 143/71, tachycardic at 124 bpm, and tachypneic at 25 rpm at time of admission. ED course: Unasyn 3000 mg IV Dexamethasone 10 mg IV Toradol 15 mg IV NSS 1000 mL IV ROS: Patient endorses fever, chills, night-sweats, dizziness, lightheadedness, mild headache, intermittent blurry vision x 2 mo, swelling/sore throat, hoarseness, difficulty swallowing, chest palpitations, heart racing, SOB at rest/exertion, pleuritic CP, hemopytsis (not coughing, but says she will occasionally spit up blood). Patient denies neck stiffness (but does hurt move), photophobia, changes in hearing/taste/smell, chest pain, coughing, abdominal pain, N/V/D, changes in urinary/bowel habits, burning with urination, dysuria, blood in the urine/stool, or numbness/tingling in the arms or legs. Principal Diagnosis Pharyngitis Graves Disease Discharge Exam Constitutional WD/WN, vitals as above ENMT significant erythematous bilateral tonsillar swelling Respiratory normal respiratory effort, lungs clear to auscultation Cardiovascular Rate/Rhythm: regular rhythm and + tachycardic Heart Sounds: normal S1 and normal S2 Gastrointestinal (Abdomen) normal bowel sounds, soft, nontender, no hepatosplenomegaly Discharge Data Allergies Allergy/AdvReac Type Severity Reaction Status Date / Time shrimp Allergy Intermediate Unverified 11/17/23 09:04 Consultations 11/17/23 15:15 ED Decision to Admit Stat Ordered Studies 11/17/23 10:25 CT soft tissue neck wo con Stat 11/17/23 15:16 CT angio chest PE protocol Stat Hospital Course (1) Tachycardia: (2) TSH deficiency: (3) Pharyngitis: Plan Pharyngitis: Fever, chills, sore throat, and throat swelling that began on 11/15 Throat culture ordered, pending Soft tissue neck CT without acute abnormalities; no abscess noted However, chest CTA did reveal mild splenomegaly; ? False negative Monospot S/p Unasyn IV IV acetaminophen as needed for pain/fever EBV pending Sepsis: resolved TSH deficiency T4 elevated (4.43) Suspected graves diseases Prominent thyroid noted both on exam and chest CTA No signs of thyroid storm +tachycardia ranging from 125-140bpm Chest CTA revealed no acute pulmonary emboli Antibodies pending started on Methimazole 10 mg daily and Propranolol 10 mg TID Should increased to Methimazole to 20 mg in a week. Then Repeat levels of TSH/T4 in 4-6 weeks Encourage follow up with Endocrinology and PCP Total Time Total Time Spent Total Time Spent (In Minutes): <30 Discharge Plan Discharge Items Patient Disposition: Home - Self-Care Reason For Visit: SEPSIS, PHARYNGITIS Discharge Diagnosis: Pharyngitis Graves Disease Activity: Per Instructions section Non-emergency contact: Primary Care Provider Call non-emergency contact if: you have any medication questions and your symptoms worsen Follow-up/Referrals: PCP,NO [Primary Care Provider] - Diet: Regular Addtl Attending Provider Instructions: pharyngitis - As we discussed, your pharyngitis was likely "double hit"initially it was likely a viral illness, and then whenever things worsened most likely it was secondary bacterial overgrowth. (When our immune system is busy fighting a virus, oftentimes the bacteria that live in the same area can opportunisticly overgrow). Given that you are feeling better, it is quite safe to get you home. We will finish out a course of treatment with Augmentin (amoxicillin/clavulanate) which has been sent to the pharmacy, take your next dose tomorrow morning (11/18). - Expect your symptoms to slowly resolve over the next week or soobviously if anything worsens we would want you seen right away. - Your elevated white blood cell count was almost certainly in response to the infection, and is already improving; at the same time, we would definitely want to make sure that it gets back to normalso as an outpatient we would want you to have lab work (CBC) to ensure that your white count went back to normal hyperthyroidism (Graves' disease) - incidentally, you were found to have significantly elevated thyroid activity. As we discussed, it is fairly frequent to see somebody's thyroid numbers "off" when they are acutely ill, but with your numbers being 34 times normal it definitely appears to be significant - Graves' disease happens when our immune system "goes rogue" and makes antibodies that stimulate her thyroid to over produce thyroid hormonethis then makes our metabolism "run on overdrive" - unfortunately there is no "off switch" for this immune system responsewhich means that ultimately the treatment for Graves' disease is usually radioactive iodine to burnout our thyroid (for this we will need you to see an universal grinder set up operator) - between now and truly fixing the problem, we definitely need to manage it. Usually we will use propranolol and methimazole to manage the symptoms and the overactive metabolism - propranolol is a beta-parrish medicationcommonly used for high blood pressure heart diseasebecause it blocks effective heart fighter flight nervous system, it can slow the racing heart rate we see with Graves' disease, and often reduce shakiness and sweats. Right now we have you on a fairly low-dose at 10 mg 3 times a daydepending on how things progress, your PCP may need to bump the dose up some (if symptoms are still out of control), at the same time, as the methimazole (which essentially blocks the effect of excess thyroid hormone) takes effect you might be able to get rid of the propranolol altogether - methimazole is a medication that essentially blocks the effect of thyroid hormonegiven that your body is making too much of it, the goal of the methimazole to be to block the effect of the thyroid hormone that is in excess of what your body needs. With your thyroid levels, it is quite likely that you will need 20 mg or more of methimazole to get your numbers to "normal"but often if we jump to that high of a dose right away it can cause a lot of GI upset. With that in mind, we will send you out with a prescription for 10 mg daily for now, with the full expectation that by next week the dose will need to be increased to 20 mg. - Your PCP would then repeat thyroid levels (TSH) in about a monthand then adjust the dose of methimazole further if needed to normalize your levels - once your thyroid has been "burned out" with radioactive iodine, the endocrinology doctor will be able to guide you off of the methimazole (and you will be on to stop the propranolol if you are still on it) given that you live several hours away, obviously it will be more convenient for you to get set up with a primary care physician and an universal grinder set up operator close to home, at the same time if you are having a hard time getting in with anyone, you can establish care with me (Dr. Cornelius Garza) [address] [place] [address] Phone number: [phone] to do: -take augmentin (amoxicillin/clavulanate) twice a day for another 7 days, starting tomorrow -take propranolol 10mg three times a day until / unless dose needs to be changed based on symptoms -take methimazole 10mg daily for the next week, then increase to 20mg unless directed otherwise or unless you have any GI symptoms -have repeat bloodwork done to follow up on your white blood cell count (CBC) in 1-2 weeks -have repeat bloodwork to follow up on the dosing of methimazole (TSH) in ~4 weeks -follow up with a PCP next week -follow up with endocrine as soon as can be facilitated Pending Studies at Discharge: Yes (viral titers) Stand[facility]Alone [facility]: [facility], Sm[facility] Cess[facility] Medications and DC Order Prescriptions: New propranolol 10 mg Tablet 10 mg PO TID Qty: 90 0RF methimazole 5 mg Tablet 10 mg PO DAILY Qty: 30 0RF amoxicillin-pot clavulanate 875-125 mg tablet 1 tab PO BID Qty: 14 0RF Continued phenol-phenolate sodium Aerosol,[place] 1 spray PO DIRECTED PRN (Reason: Other) DayQuil Sinus Pressure/Pain 1 tab PO DIRECTED PRN (Reason: Other) Rx Instructions: otc, as directed Lozenges 1 malorie PO DIRECTED PRN (Reason: Other) Tylenol Extra Strength 1 tab PO DIRECTED PRN (Reason: Pain) Discharge Orders: Discharge Order (Routine); Ordered 11/18/23 Ordered By: Constantin Lim Admission Data Admit Date/Time: 11/17/23 15:25 Attending Provider: Constantin Lim Admit Provider: Farhad Flowers Primary Care Provider: PCP,NO Other Providers: Farhad Flowers Other Interventions: Discharge Summary Assessment (RN) Last Done: 11/18/23 16:06 Supervising Physician Co-Signing Physician Notes I personally examined the patient and verified all perdomo points of history and exam, discussed case, and agree with decision making with Dr Ihsan Garza feeling better. Feels up to going home. Feels like she will be able to tolerate oral intake well. Extensive discussion on pharyngitis as well as Graves' diseaseshe expresses a very good understanding of all of the above. Vitals noted, in general she is awake and alert pleasant no distress. HEENT normocephalic atraumatic mucous membranes moist. Breathing unlabored no accessory muscle use good effort. Skin without rashes pallor or icterus. Neuro without focal deficits. Pharyngitis with sepsis present on admissionsymptoms predominantly seem consistent with viral, but white count with a neutrophil predominance as well as the severity of her illness raises the question of bacterial overgrowthimproving nicely on Unasynhome on Augmentin. Outpatient CBC to follow white count and normalization. Graves' diseasequite hyperthyroid with free T4 markedly above upper limits of normalheart rate is improved on propranolol. Discharged on methimazole. Literature would suggest that she will probably be upwards of 20 mg dailybut I harbor concerns that getting her straight to that high of a dose may cause GI symptoms. To that end discharge on 10 mg of methimazole for a week and then anticipate escalating to 20 mg. Repeat TSH until methimazole has been titrated for normalization. Referral to endocrinology with anticipation of radioactive iodine dispositionsafe/stable for home. She is only in the [place] area for a few more days and then goes back to [place]. She does not have a PCP back home. We discussed the need for this to all be followed through withshe expresses a good understanding. She believes she will be able to find a PCP back home in timely fashion, but if she is unable to, we have discussed that Dr. Ihsan Garza [place]
--- NOTE | 2023-11-18 16:36 | Billing Data ---
Date of Service November 18, 2023 Coding Level of Care Code 90620 IN/OBS DISCH 30 MIN/LESS
== END 2023-11-18 16:49 | disposition home or self-care (01) | DRG 872 ==
LOC: ED 10:03 → SUATTDRO 15:25 → 2S 15:25